=== PATIENT | male | born 1950 | race Caucasian/White ===

== ENCOUNTER → 2018-10-23 | Outpatient (CLI) | payer SELFPAY ==
--- NOTE | 2018-10-23 13:54 | CT ---
EXAMINATION TYPE: CT iac wo con DATE OF EXAM: 10/23/2018 COMPARISON: None HISTORY: Chronic episode of OWODY CT DLP: 280 mGycm. Automated Exposure Control for Dose Reduction was Utilized. TECHNIQUE: CT scan of internal auditory canal is performed without contrast, thin cut axial images ar e obtained, coronal reformatted images are also reviewed. Left w con will limit evaluation for small schwannomas. FINDINGS: The external auditory canals are patent bilaterally. Mastoid air cells show no evidence of abnormal opacification bilaterally. The middle ear ossicles are symmetric and unremarkable. There is no evidence of suspicious surrounding soft tissue density to suggest cholesteatoma. The scutum is preserved bilaterally. The cochlea and the semicircular canals are symmetric and unremarkable. Ves tibular aqueduct and internal carotid canal appear unremarkable. Internal artery canals are normal w ithout expansion or erosion. Note is made of high riding jugular bulbs. Temporomandibular joints are maintained bilaterally. Visualized paranasal sinuses are grossly clear. Visualized portion brain parenchyma is felt within normal limits. IMPRESSION: 1. Normal internal auditory canal study.
== END | disposition home or self-care (01) ==
LOC: RADCTMAIN 11:11
DX: H70.10 Chronic mastoiditis, unspecified ear (principal)
CPT/HCPCS: 70480